=== PATIENT | female | born 1985 | race American Indian/Alaskan Native ===

== ENCOUNTER 2018-04-16 12:42 | Outpatient (CLI) | payer OTHER | END 2018-04-17 14:49 | disposition home or self-care (01) | LOC: OBS/DEL 12:42 | DX: O23.42 Unspecified infection of urinary tract in pregnancy, second trimester (principal); O60.02 Preterm labor without delivery, second trimester; Z34.82 Encounter for supervision of other normal pregnancy, second trimester ==

== ENCOUNTER 2018-07-07 10:00 | Inpatient (IN) | payer OTHER ==
[~2018-07-07] VITALS: Ht 165.1 cm; Wt 83.0 kg
[2018-07-07] MEDS ORDERED: TRANDATE300 MG PO (11:37)
[2018-07-07] MEDS ORDERED: PRENATAL 19 TA1 EAC1 PO (11:50)
== END 2018-07-12 13:22 | disposition home or self-care (01) | DRG 766 ==
LOC: O/R 07-09 05:27 → OB/GYN 07-09 05:27
PROVIDERS: Obstetrics & Gynecology
PROC: 0UB70ZZ Excision of Bilateral Fallopian Tubes, Open Approach (ICD-10-PCS; 2018-07-09)
PROC: 4A1HXCZ Monitoring of Products of Conception, Cardiac Rate, External Approach (ICD-10-PCS; 2018-07-09)
PROC: 4A033R1 Measurement of Arterial Saturation, Peripheral, Percutaneous Approach (ICD-10-PCS; 2018-07-09)
PROC: 10D00Z1 Extraction of Products of Conception, Low, Open Approach (ICD-10-PCS; principal; 2018-07-09 14:00)
DX: O34.211 Maternal care for low transverse scar from previous cesarean delivery (principal); O75.82 Onset (spontaneous) of labor after 37 completed weeks of gestation but before 39 completed weeks gestation, with delivery by (planned) cesarean section; Z3A.38 38 weeks gestation of pregnancy; Z37.0 Single live birth